=== PATIENT | male | born 1965 | race Caucasian/White ===

== ENCOUNTER 2023-03-14 14:53 | Emergency (ER) | payer SELFPAY ==
[~2023-03-14] VITALS: Ht 167.6 cm; Wt 56.8 kg
[~2023-03-14 14:53] MED LIST: HYDROMORPHONE HY8 MG PO; KADIAN30 MG PO; KLONOPIN 1MG1 MG PO; METHADONE H10 MG/TAB PO; MSIR30 M1 PO; MSIR30 MG PO
[2023-03-14 15:03] VITALS: BP 171/83; PULSE 76; TEMP 98.3
== END 2023-03-14 15:31 | disposition home or self-care (01) ==
LOC: COL.ER 14:53
DX: Z76.0 Encounter for issue of repeat prescription (principal); G89.29 Other chronic pain; M79.672 Pain in left foot; M79.671 Pain in right foot; Z28.310 Unvaccinated for COVID-19